=== PATIENT | male | born 1965 | race Caucasian/White ===

== ENCOUNTER 2017-01-27 20:42 | Inpatient (IN) | payer SELFPAY ==
--- NOTE | 2017-01-27 21:09 | ER Document Report ---
ED Neuro Symptoms/Deficit - General Chief Complaint: S/S of Possible Stroke Stated Complaint: POSSIBLE STROKE Time seen by provider: 21:00 Notes: Patient is a 51-year-old male that comes emergency department for chief complaint of left-sided weakness and facial drooping on the left side as well. Patient and significant other states symptoms started yesterday but patient did not want to comes emergency department. Patient states he feels a little off balance as well, has weakness in his left arm and left leg. Patient denies any other symptoms. Symptoms have not resolved since yesterday. Patient has a history of type II diabetes, on metformin, also has a history of kidney stones. Patient denies any other medical history including cardiovascular history. Patient does not have a primary care provider. - Related Data Allergies/Adverse Reactions: No Known Allergies Allergy (Verified 01/27/17 21:58) Past Medical History - General Information source: Patient - Social History Smoking Status: Former Smoker Drug Abuse: None Lives with: Family Family History: Reviewed & Not Pertinent Endocrine Medical History: Reports: Hx Diabetes Mellitus Type 2 Renal/ Medical History: Reports: Hx Kidney Stones Past Surgical History: Reports: Hx Urinary Tract Surgery - Ureteral stent - Immunizations Hx Diphtheria, Pertussis, Tetanus Vaccination: Yes Review of Systems - Review of Systems Constitutional: No symptoms reported EENT: No symptoms reported Cardiovascular: No symptoms reported Respiratory: No symptoms reported Gastrointestinal: No symptoms reported Genitourinary: No symptoms reported Male Genitourinary: No symptoms reported Musculoskeletal: No symptoms reported Skin: No symptoms reported Hematologic/Lymphatic: No symptoms reported Neurological/Psychological: See HPI Physical Exam - Vital signs Interpretation: Normal - General General appearance: Appears well In distress: None - HEENT Head: Normocephalic, Atraumatic Eyes: Normal Conjunctiva: Normal Extraocular movements intact: Yes Eyelashes: Normal Pupils: PERRL Nasal: Normal Mouth/Lips: Normal Mucous membranes: Normal Pharynx: Normal Neck: Normal - Respiratory Respiratory status: No respiratory distress Chest status: Nontender Breath sounds: Normal. No: Decreased air movement, Wheezing Chest palpation: Normal - Cardiovascular Rhythm: Regular. No: Tachycardia Heart sounds: Normal auscultation, S1 appreciated, S2 appreciated Murmur: No - Abdominal Inspection: Normal Distension: No distension Bowel sounds: Normal Tenderness: Nontender. No: Tender, Guarding - Back Back: Normal, Nontender. No: Tender - Extremities General upper extremity: Normal inspection, Nontender. No: Tender General lower extremity: Normal inspection, Nontender. No: Tender - Neurological Neuro grossly intact: Yes Cognition: Normal. No: Confused, Inattentive Orientation: AAOx4. No: Disoriented to person, Disoriented to place, Disoriented to time, Disoriented to events Melody Coma Scale Eye Opening: Spontaneous [place] Coma Scale Verbal: Oriented Melody Coma Scale Motor: Obeys Commands Melody Coma Scale Total: 15 Speech: Normal. No: Dysarthria, Expressive aphasia, Receptive aphasia Cranial nerves: Facial palsy - There is noted facial palsy with left-sided facial droop at the mouth, Forehead sparing - There is noted left sided forehead sparing. No: Gaze palsy, Tongue deviation Motor strength normal: RUE, RLE. No: LUE - Right side normal, left upper extremity with mild reduced crane rigger strength, LLE - Patient able to elevate left leg but loses strength and falls back to bed before 10 seconds has passed, regular with normal strength. Additional motor exam normals: No: Equal crane rigger - Weakened crane rigger on the left side compared to the right Sensory: Normal - Psychological Associated symptoms: Normal affect, Normal mood - Skin Skin Temperature: Warm Skin Moisture: Dry Skin Color: Normal Course - Re-evaluation Re-evalutation: Patient presents with examination and symptoms consistent with CVA, symptoms started yesterday and he is outside the window to consider thrombolytics. Patient with facial palsy including left-sided facial droop and weakness, difficulty blinking with the left eye, and flattening of the left forehead suggestive of Barba's palsy, however on examination patient also has noted weakness in the left hand crane rigger and also weakness in the left leg suggestive of a CVA. CT of the head shows no hemorrhage or other acute abnormality. Patient hypertensive, not medicating because of suspected CVA and will proceed with permissive hypertension, mild hyperglycemia, no atrial fibrillation on EKG, generally unremarkable workup. Patient's symptoms continued on reevaluation. Patient was discussed with Dr. Durham. Patient was discussed with Dr. Harris, patient will be admitted to the [facility]. - Laboratory Result Diagrams: 01/27/17 21:15 01/27/17 21:15 ED Alteplase Inc/Exc Criteria - Inclusion Criteria: 1: Patient presented to ED within 3 hours of acute ischemic stroke symptom onset ? -: No 2: Did baseline CT exclude intracranial hemorrhage and/or other risk factors? 3: Is the age of the patient 18 years of age or greater? : If any of the above questions are answered "NO" then stop, patient is not a candidate for Alteplase, : If all of the above questions are answered "YES" then continue with Exclusion Criteria. - Exclusion Criteria: 1: Is there evidence of intracranial hemorrhage on baseline CT? 2: Is there suspicion of subarachnoid hemorrhage (even if CT negative)? 3: Is there a history of serious head trauma, recent previous stroke or TX within 3 months? 4: Does the patient have a clinical presentation consistent with TX or post-TX pericarditis? 5: Is there history of intracranial hemorrhage? 6: On repeated measurement is Systolic BP greater than 185mmHg or Diastolic BP greater that 110 mmHg and is aggressive treatment needed to reduce blood pressure to these limits (e.g. constant infusion of an anti-hypertensive)? 7: Did the patient awake with stroke symptoms? 8: Has the patient had a lumbar puncture or an arterial puncture at a non- compressile site within 7 days? 9: With in the last 14 days did the patient have surgery or major trauma? 10: Is the patient or less than 2 weeks? 11: Was there any active bleeding or acute trauma? 12: Does the patient have intracranial neoplasm, arteriovenous malformation or aneurysm? 13: Does the patient have abnormal glucose (less than 50 or greater than 400mg/ dl)? Record glucose in Comment. 14: Patient has rapidly improving symptoms at the time Alteplase is to be Administered. 15: Does the patient have any risks for bleeding, including but not limited to: a.: Current use of Coumadin with PT greater than 15 seconds or INR greater than 1.7. b.: Current use of Pradaxa (Dabigatran). c.: Heparin administereed within the past 48 hours and PTT elevated. d.: Platelet count less than 100,000/mm. e.: Major surgery or serious trauma within 14 days. f.: Gastrointestinal or gynecological urinary bleeding within 14 days. g.: Myocardial Infarction (TX) within 3 months. : If the answer to any of the above questions is "YES" then stop, the patient is not a candidate for Alteplase. : If the answer to all of the above questions is "NO" then the patient may be eligible for the Administration of Alteplase. : If the patient is noted to have seizure activity at onset of Stroke symptoms; Consult Neurologist for further evaluation. - The patient is: -: Included and is eligible to receive Alteplase. *Initiate bed placement at higher level of care* Reviewd risks & benefits of thrombolytic therapy: I have reviewed the risks and benefits of thrombolytic therapy with the patient and/or his/her family. -: Excluded and not eligible to receive Alteplase for the above exclusions. -: Excluded and not eligible to receive Alteplase for other reasons (specify in comments): - Diagnosis of TIA: -: Patient presented with transient symptoms that are now resolved and no other neurologic findings are currently present. List symptoms in comments. -: Patient is NOT a candidate for tPA. -: ____(put name in comment) has been consulted for admission and continued evaluation of risk factor assessment. ED NIH Stroke Scale - NIH Stroke Scale When completed:: Before Alteplase *: 1. NIH scale should be completed with appropriate accompanying assessment tools. *: 2. The NIH should reflect what the patient is capable of doing and should not be coached by the clinician. 1a. Level of Consciousness: 0=Alert;keenly responsive -: 1=Drowsy -: 2=Obtunded -: 3=Coma/unresponsive or reflex to noxious stimuli. 1a. Responses: 0 1b. Orientation Questions: a. What month is it? -: b. How old are you? -: 0=Answers both questions correctly. -: 1=Answers one question correctly or patient is intubated or has orotracheal trauma. -: 2=Answers neither question correctly. 1b. Responses: 0 1c. Response to commands: a. Open and close eyes? -: b. Cardroom Attendant and release hand? -: Credit is given despite weakness. Demonstration of task is permitted. Substitute command if hands cannot be used. -: 0=Performs both tasks correctly -: 1=Performs one task correctly -: 2=Performs neither task correctly 1c. Responses: 0 2. Gaze: Establish eye contact and instruct patient to "Follow my finger" -: 0=Normal -: 1=Partial gaze palsy. Gaze is abnormal in one or both eyes, but where forced deviation or total gaze paresis is not present. -: 2=Forced deviation or total gaze paresis. 2. Responses: 0 3. Visual Garcia: Sees fingers in all four quadrants. -: 0=No visual loss. -: 1=Partial hemianopsia. -: 2=Complete hemianopsia. -: 3=Bilateral hemianopsia (including Cortical blindness) 3. Responses: 0 4. Facial Movement: Instruct patient to: -: a. Show me your teeth -: b. Raise your eyebrows -: c. Close your eyes -: d. Smile -: 0=Normal symmetrical movement -: 1=Minor paralysis (flattened nasolabial fold, asymmetry on smiling). -: 2=Partial paralysis (total or near total paralysis of lower face). -: 3=Complete paralysis of upper and lower face 4. Responses: 2 5. Motor functions (left arm): Alternate sides and extend each arm with palms down (90 degrees if sitting or 45 degrees for supine). -: 0=No drift;limb holds for full 10 seconds. -: 1=Drift; limb holds but drifts down before full 10 seconds, but does not hit bed. -: 2=Some effort against gravity; limb cannot get to or maintain position. -: 3=No effort against gravity; limb falls. -: 4=No movement. -: UN=Amputation, joint fusion, explain in comments. 5. Responses (left arm): 1 5. Motor Functions (right arm): Alternate sides and extend each arm with palms down (90 degrees if sitting or 45 degrees for supine). -: 0=No drift;limb holds for full 10 seconds. -: 1=Drift; limb holds but drifts down before full 10 seconds, but does not hit bed. -: 2=Some effort against gravity; limb cannot get to or maintain position. -: 3=No effort against gravity; limb falls. -: 4=No movement. -: UN=Amputation, joint fusion, explain in comments. 5. Responses (right arm): 0 6. Motor Functions (left leg): With patient lying supine, alternate sides and extend each leg (30 degrees always while supine). -: 0=No drift, leg holds position for full 5 seconds -: 1=Drift; leg falls before full 5 seconds but does not hit bed. -: 2=Some effort against gravity, leg falls to bed but some effort against gravity. -: 3=No effort against gravity, leg falls to bed immediately. -: 4=No movement. -: UN=Amputation, joint fusion; explain in comments. 6. Responses (left leg): 1 6. Motor Functions (right leg): With patient lying supine, alternate sides and extend each leg (30 degrees always while supine). -: 0=No drift, leg holds position for full 5 seconds -: 1=Drift; leg falls before full 5 seconds but does not hit bed. -: 2=Some effort against gravity, leg falls to bed but some effort against gravity. -: 3=No effort against gravity, leg falls to bed immediately. -: 4=No movement. -: UN=Amputation, joint fusion; explain in comments. 6. Responses (right leg): 0 7. Limb Ataxia: With eyes open instruct patient to: -: a. "Touch your finger to your nose". -: b. "Touch your heel to your lu" -: 0=Absent -: 1=Present in one limb. -: 2=Present in two limbs. -: UN=Amputation or joint fusion; explain in comments. 7. Responses: 0 8. Sensory: Test sensation using pinprick or noxious stimuli. Test as many body parts as possible. -: 0=Normal;no sensory loss -: 1=Mile to moderate sensory loss (patient feels pin prick but is less sharp on affected side). -: 2=Severe or total sensory loss. 8. Responses: 0 9. Best Language: Instruct patient to: -: a. "Describe what you see in this picture." -: b. "Name the items in this picture." -: c. "Read these sentences." -: 0=No aphasia, normal -: 1=Mild to moderate aphasia. -: 2=Severe aphasia -: 3=Mute, global aphasia, no usable speech or auditory comprehension. 9. Responses: 0 10. Articulation, Dysarthia: Instruct patient to: -: "Read these words" or "Repeat these words" -: 0=Normal -: 1=Mild to moderate; patient may slur some words but can be understood without difficulty. -: 2=Severe; patients speech so slurred as to be unintelligible in the absence of dysphasia. -: UN=Intubated or other physical barrier, explain in comments. 10. Responses: 0 11. Extinction or inattention: 0=No abnormality -: 1= Visual, tactile, auditory, spatial, or personal inattention or extinction to bilateral simulation in one or the sensory modalities. -: 2=Profound kassidy-inattention or kassidy-inattention to more than one modality; does not recognize own hand. 11. Responses: 0 Total Score: 4 Discharge - Discharge Clinical Impression: Left-sided weakness, Facial palsy CVA (cerebral vascular accident) Qualifiers: CVA mechanism: unspecified Qualified Code(s): I63.9 - Cerebral infarction, unspecified Condition: Stable Disposition: ADMITTED INPATIENT Admitting Provider: Hospitalist Unit Admitted: [facility]
[2017-01-27 21:42] LABS: ABSOLUTE BASOPHILS # (AUTO) 0.1 10^3/uL (0.0-0.2); ABSOLUTE EOSINOPHILS # (AUTO) 0.1 10^3/uL (0.0-0.6); ABSOLUTE LYMPHOCYTES (AUTO) 2.2 10^3/uL (0.5-4.7); ABSOLUTE MONOCYTES (AUTO) 0.6 10^3/uL (0.1-1.4); BASOPHILS % (AUTO) 0.6 % (0-2); EOSINOPHILS % (AUTO) 0.7 % (0-6); HEMATOCRIT 47.2 % (37.9-51.0); HEMOGLOBIN 16.3 g/dL (13.5-17.0); HGB HCT DIFFERENCE 1.7; LYMPHOCYTES % (AUTO) 20.2 % (13-45); MEAN CORPUSCULAR HGB CONC 34.5 g/dL (32.0-36.0); MEAN CORPUSCULAR VOLUME 84 fl (80-97); MONOCYTES % (AUTO) 5.2 % (3-13); RED CELL DISTRIBUTION WIDTH 13.9 % (11.5-14.0); SEGMENTED NEUTROPHILS % (AUTO) 73.3 % (42-78); WHITE BLOOD COUNT 10.9 10^3/uL (4.0-10.5)
[2017-01-27 21:43] LABS: PROTHROMBIN TIME 13.3 SEC (11.4-15.4)
[2017-01-27 21:44] LABS: PARTIAL THROMBOPLASTIN TIME 26.2 SEC (23.5-35.8)
[2017-01-27 21:59] LABS: ALANINE AMINOTRANSFERASE 33 U/L (21-72); ALBUMIN 4.8 g/dL (3.5-5.0); ALKALINE PHOSPHATASE 101 U/L (38-126); ANION GAP 14 (5-19); ASPARTATE AMINO TRANSFERASE 27 U/L (17-59); BILIRUBIN,DIRECT 0.1 mg/dL (0.0-0.4); BILIRUBIN,TOTAL 0.8 mg/dL (0.2-1.3); BLOOD UREA NITROGEN 18 mg/dL (7-20); CALCIUM 9.7 mg/dL (8.4-10.2); CARBON DIOXIDE 28 mmol/L (22-30); CHLORIDE 99 mmol/L (98-107); CREATINE KINASE 59 U/L (55-170); CREATININE RESULT 0.95 mg/dL (0.52-1.25); GLUCOSE 266 mg/dL (75-110); POTASSIUM 3.6 mmol/L (3.6-5.0); SODIUM 140.9 mmol/L (137-145); TOTAL PROTEIN 7.7 g/dL (6.3-8.2)
[2017-01-27 22:06] LABS: CREATINE KINASE MB 0.35 ng/mL (<4.55)
[2017-01-27 22:08] LABS: TROPONIN I < 0.012 ng/mL
[2017-01-28] MEDS ORDERED: ACETAMINOPHEN 325 MG TABLET PO ONE (01:04)
[2017-01-28] MEDS ORDERED: GLUCAGON,HUMAN RECOMB 1 MG INJ IM PRN (04:06)
[2017-01-28] MEDS ORDERED: DEXTROSE 40% GEL 15 GM TUBE PO PRN ×2 (04:06)
[2017-01-28] MEDS ORDERED: DEXTROSE 50%-WATER 25 GM/50 ML DISP.SYRIN IV PRN ×2 (04:06)
--- NOTE | 2017-01-28 04:35 | PDOC H&P ---
History of Present Illness Admission Date/PCP: 01/28/17 02:26 PCP None Patient complains of: stroke like symptoms History of Present Illness: MARLON GONZALEZ is a 51 year old obese [id number] diabetic hypertensive male who presents to the emergency room for evaluation of above complaints. Patient has been discussed with emergency room nurse practitioner who evaluated the patient. Starting approximate 24 hours prior to emergency room presentation, patient noted the onset of left-sided weakness, along with facial drooping and mild dysarthria. Some mild left facial numbness and tingling also. Really no change in his symptoms since the start of same. No dysphagia. No vision problems. No prior such episodes. No history of seizure stroke TIA or mini stroke. Mild associated headache on occasion, but no chest or abdominal pain. Mild nausea but no vomiting. No fever or chills.. Laboratory results are listed in [email or web address] and are reviewed. X-ray summary results are listed below, with full report(s) reviewed. . EKG pending Social history/personal habits: . Has stepchildren. Drives a cab. No use of alcohol tobacco or illicit drugs. Allergies/adverse reactions NKDA. Home medications none at present. Was on metformin in the past. REVIEW OF SYSTEMS: Constitutional: No fever or chills. Eyes: No current vision complaints. ENT: No swallowing problems or complaints. No hearing problems or complaints. Pulmonary: No current complaints. Cardiovascular: No current complaints, including chest pain. Gastrointestinal: See history and present illness. Skin: No current complaints, including rashes. Hematologic: No unusual easy bruising or bleeding. Neurologic: See history and present illness. Musculoskeletal: Joint pain from arthritis. Psychiatric: No current complaints, including anxiety or depression. Endocrine: No current complaints, including polyuria. Genitourinary: No current complaints, including dysuria. PHYSICAL EXAMINATION: 5 feet 7 inches tall. 101.7 kg. BMI 35.1 kg/m. The pressure 161/94. Pulse 78 and regular. 99% saturation on room air. Respirations are 12 and unlabored. Temperature 98.1. Obese otherwise well-developed male appearing approximately his stated age. Pleasant awake alert and cooperative. No obvious distress other than perhaps mildly anxious. No agitation. Skin is warm and dry. No grossly obvious evidence of rash in areas of skin examined. No subcutaneous nodules palpated. ENT: Hearing grossly normal to normal conversation. Tongue midline on protrusion pink and slightly tacky. Eyes: No scleral icterus. Pupils equal and reactive to light at 4 mm. Huxley conjunctivae. Neck is supple and nontender to gentle active range of motion and palpation. Midline trachea. No palpable thyroid nodule mass enlargement or tenderness. Lymphatic: No palpable cervical or clavicular nodes. Neck and lymphatic exams limited by patient body habitus. Psychiatric: Reasonable insight into acute and chronic medical issues. Oriented to time location and why here. Lungs: Auscultation reveals clear and equal breath sounds bilaterally. No use of accessory respiratory muscles. Cardiovascular: Heart regular rate and rhythm, without gallop murmur or rub. No carotid or abdominal aortic bruits. No ankle or pedal edema. Faintly palpable dorsalis pedis pulses. Abdomen: soft, obese, nontender with positive bowel sounds. Unable to adequately evaluate abdomen for masses or organomegaly due to body habitus. Extremities: Feet are warm and dry. No calf tenderness to compression. No grossly obvious visual evidence of calf swelling. Gentle manipulation of upper and lower extremities fails to reveal any obvious evidence of injury or instability to involve major joints. Neurologic: Cranial Nerves II through XII are grossly intact, with the exception of drooping of the left corner of the mouth, more pronounced with smiling.. Light touch intact at face, upper and lower extremities. Motor function of major muscle groups upper and lower extremities 5 over 5, right, 4 over 5, left . Patellar reflexes absent. Absent Babinski. No nystagmus. Past Medical History Cardiac Medical History: Reports: Hypertension Denies: Congestive Heart Failure, DVT, Myocardial Infarction, Hyperlipidema, Pulmonary Embolism Pulmonary Medical History: Reports: Asthma - History of; hasn't bothered him in many years. Denies: Chronic Obstructive Pulmonary Disease (COPD) Neurological Medical History: Denies: Hemorrhagic CVA, Ischemic CVA, Seizures Endocrine Medical History: Reports: Diabetes Mellitus Type 2 Denies: Diabetes Mellitus Type 1, Hyperthyroidism, Hypothyroidism Renal/ Medical History: Reports: None GI Medical History: Denies: Cirrhosis, Gastroesophageal Reflux Disease, Hepatitis, Peptic Ulcer Disease Musculoskeltal Medical History: Reports: Arthritis Skin Medical History: Reports: None Psychiatric Medical History: Reports: Depression - Denies suicidal or homicidal ideation. Denies: Alcohol Dependency, General Anxiety Disorder, Substance Abuse, Tobacco Dependency Hematology: Reports: None Infectious Medical History: Denies: Hepatitis B, Hepatitis C Past Surgical History Past Surgical History: Reports: Orthopedic Surgery - Left knee surgery, Tonsillectomy Social History Information Source: Patient, Emergency Med Personnel, [facility] Records Lives with: Spouse/Significant other Smoking Status: Never Smoker Frequency of Alcohol Use: None Drugs: None - Advance Directive Resuscitation Status: Full Code Surrogate healthcare decision maker:: Family History Family History: Reviewed & Not Pertinent Parental Family History Reviewed: Yes Children Family History Reviewed: NA Sibling(s) Family History Reviewed.: Yes Medication/Allergy Allergies/Adverse Reactions: No Known Allergies Allergy (Verified 01/27/17 21:58) Physical Exam Vital Signs: Temp Pulse Resp BP Pulse Ox 98.1 F 71 15 167/97 H 98 01/28/17 01:00 01/28/17 03:02 01/28/17 03:32 01/28/17 03:32 01/28/17 03:32 Results Impressions: Chest X-Ray 01/27/17 20:45 IMPRESSION: NO ACUTE RADIOGRAPHIC FINDING IN THE CHEST. Head CT 01/27/17 20:45 IMPRESSION: No acute findings. Assessment & Plan - Diagnosis (1) Acute focal neurological deficit Is this a current diagnosis for this admission?: YesPlan: Patient will be admitted under CVA/TIA protocol. Multiple imaging procedures, intracranial, vascular, and cardiac. lipid panel. Permissive hypertension. Speech therapy consult. Patient is a full code. I have strongly urged patient not to get out of bed without calling nursing staff, to avoid a fall with injury.] Knee high SCDs for DVT prophylaxis, along with subcutaneous Lovenox . Impression and plans were discussed with patient, who concurs. Time spent in evaluation and management of patient: 62 minutes (2) Facial droop Is this a current diagnosis for this admission?: Yes (3) Left-sided weakness Is this a current diagnosis for this admission?: Yes (4) Diabetes mellitus type 2 in obese Is this a current diagnosis for this admission?: YesPlan: Accu-Cheks with appropriate sliding scale coverage. (5) HTN (hypertension) Qualifiers: Hypertension type: essential hypertension Qualified Code(s): I10 - Essential (primary) hypertension Is this a current diagnosis for this admission?: YesPlan: Permissive hypertension. (6) Noncompliance Is this a current diagnosis for this admission?: Yes - Inpatient Certification Based on my medical assessment, after consideration of the patient's comorbidities, presenting symptoms, or acuity I expect that the services needed warrant INPATIENT care.: Yes I certify that my determination is in accordance with my understanding of Medicare's requirements for reasonable and necessary INPATIENT services [42 CFR 412.3e].: Yes Medical Necessity: Need For IV Fluids, Need For Continuous Telemetry Monitoring , Need for Neurological Checks, Risk of Complication if Not Cared For in Hospital Post Hospital Care: D/C or Transfer Summary
[2017-01-28] MEDS: POTASSI CL 20 MEQ/NS 1L 1,000 ML IV PRN ×2 (05:08→14:11)
[2017-01-28] MEDS: ASPIRIN 325 MG TABLET, ENT COATED PO SCH (05:10)
[2017-01-28 05:50] LABS: ADD ON TESTING BLD IN LAB ACKNOWLEDGE
[2017-01-28 06:08] LABS: CHOLESTEROL 212.75 mg/dL (0-200); Direct HDL 37 mg/dL (>40); TRIGLYCERIDES 342 mg/dL (<150)
[2017-01-28 06:20] LABS: DIRECT LDL 99 mg/dL (<100)
[2017-01-28 06:21] LABS: VLDL CHOLESTEROL 68.4 mg/dL (10-31)
--- NOTE | 2017-01-28 08:17 | EKG REPORT ---
SEVERITY:- ABNORMAL ECG - SINUS RHYTHM ATRIAL PREMATURE COMPLEX LVH WITH SECONDARY REPOLARIZATION ABNORMALITY ANTERIOR Q WAVES, POSSIBLY DUE TO LVH : Confirmed by: Jacky Cary MD 28-Jan-2017 08:16:57
[2017-01-28 10:44] LABS: URINE BARBITURATES SCREEN NEGATIVE; URINE METHADONE SCREEN NEGATIVE; URINE OPIATES LOW NEGATIVE; URINE PHENCYCLIDINE SCREEN NEGATIVE
[2017-01-28] MEDS: INSULIN LISPRO 100 UNIT/ML 3 ML VIAL SUBCUT PRN ×2 (11:40→16:29)
[2017-01-28] MEDS: LORAZEPAM INJ 2 MG/1 ML VIAL IV PRN (11:50)
[2017-01-28] MEDS ORDERED: LORAZEPAM INJ 2 MG/1 ML VIAL IV ONE (12:00)
[2017-01-28] MEDS: ENOXAPARIN SODIUM INJ 40 MG/0.4 ML DISP.SYRIN SUBCUT SCH (14:13)
[2017-01-28] MEDS: DOCUSATE SODIUM 100 MG CAPSULE PO SCH ×2 (14:26→16:32)
[2017-01-28] MEDS: ACETAMINOPHEN 325 MG TABLET PO PRN ×2 (16:31→22:17)
[2017-01-29] MEDS: INSULIN LISPRO 100 UNIT/ML 3 ML VIAL SUBCUT PRN ×2 (09:05→12:30)
[2017-01-29] MEDS: ENOXAPARIN SODIUM INJ 40 MG/0.4 ML DISP.SYRIN SUBCUT SCH (09:06)
[2017-01-29] MEDS: DOCUSATE SODIUM 100 MG CAPSULE PO SCH (09:08)
[2017-01-29] MEDS: ASPIRIN 325 MG TABLET, ENT COATED PO SCH (09:09)
[2017-01-29] MEDS: ACETAMINOPHEN 325 MG TABLET PO PRN ×2 (09:10→13:09)
[2017-01-29] MEDS: POTASSI CL 20 MEQ/NS 1L 1,000 ML IV PRN (10:33)
[2017-01-29] MEDS: LORAZEPAM INJ 2 MG/1 ML VIAL IV PRN (13:56)
--- NOTE | 2017-01-29 14:07 | XCELERA REPORT ---
[address] [address] Transthoracic Echocardiogram Report Name: MARLON GONZALEZ Age: 51 yrs Gender: Male : 1965 Patient Status: Inpatient Patient Location: \S\04\S\A Study Date: 01/28/2017 09:21 AM Height: 67 in Weight: 224 lb BSA: 2.1 m2 Procedure: A two-dimensional transthoracic echocardiogram with color flow and Doppler was performed. Study Quality: Technically suboptimal. Reason For Study: TIA / CVA History: TIA / CVA. Ordering Physician: BOZENA LOPEZ Performed By: Lisa Asencio Interpretation Summary There is no obvious cardiac source of embolus noted on this transthoracic echocardiogram. Follow-up with a MARIS is suggested if cardiac source is still suspected. The left ventricle is normal in size. There is mild concentric left ventricular hypertrophy. LV EF is > than 60% Left ventricular systolic function is normal. Doppler measurements suggest normal left ventricular diastolic function The left ventricular wall motion is normal. There is no thrombus. There is no ventricular septal defect visualized. The left atrial size is normal. There is no evidence of mitral valve prolapse. There is no mitral valve stenosis. There is no mitral regurgitation noted. There is no aortic valvular vegetation. There is no aortic valve stenosis There is no LVOT obstruction. No aortic regurgitation is present. There is no tricuspid stenosis. No tricuspid regurgitation. Unable to calculate RVSP due to insufficient TR jet. There is no pericardial effusion. There is no obvious cardiac source of embolus noted on this transthoracic echocardiogram. Follow-up with a MARIS is suggested if cardiac source is still suspected MMode/2D Measurements \T\ Calculations RVDd: 2.9 cm LVIDd: 4.5 cm FS: 29.4 % Ao root diam: 3.5 cm IVSd: 1.2 cm LVIDs: 3.2 cm EDV(Teich): 94.9 ml LVPWd: 1.2 cm ESV(Teich): 41.4 ml Ao root area: 9.4 cm2 EF(Teich): 56.4 % LA dimension: 3.5 cm LVOT diam: 2.3 cm LVOT area: 4.0 cm2 Doppler Measurements \T\ Calculations MV E max helen: MV P1/2t max helne: Ao V2 max: LV V1 max P.0 cm/sec 67.1 cm/sec 105.9 cm/sec 3.0 mmHg MV A max helen: MV P1/2t: 38.4 msec Ao max PG: LV V1 max: 56.3 cm/sec MVA(P1/2t): 5.7 cm2 4.5 mmHg 87.1 cm/sec MV E/A: 1.2 MV dec slope: YARELI(V,D): 3.3 cm2 511.8 cm/sec2 PA V2 max: 79.7 cm/sec PA max P.5 mmHg Left Ventricle The left ventricle is normal in size. There is mild concentric left ventricular hypertrophy. LV EF is > than 60%. Left ventricular systolic function is normal. Doppler measurements suggest normal left ventricular diastolic function. The left ventricular wall motion is normal. There is no thrombus. There is no ventricular septal defect visualized. Right Ventricle The right ventricle is normal in size and function. Atria The right atrium is normal. The left atrial size is normal. The interatrial septum is intact with no evidence for an atrial septal defect. Mitral Valve There is no evidence of mitral valve prolapse. There is no vegetation seen on the mitral valve. There is no mitral valve stenosis. There is no mitral regurgitation noted. Aortic Valve There is no aortic valvular vegetation. There is no aortic valve stenosis. There is no LVOT obstruction. No aortic regurgitation is present. Tricuspid Valve There is no tricuspid stenosis. No tricuspid regurgitation. Unable to calculate RVSP due to insufficient TR jet. Pulmonic Valve There is no pulmonic valvular stenosis. There is no pulmonic valvular regurgitation. Great Vessels The aortic root is normal size. Effusions There is no pericardial effusion. : BOZENA LOPEZ > Roya Martinez
[2017-01-29 17:18] VITALS: BP 174/90
[2017-01-30 07:33] LABS: LYME DISEASE IGG AND IGM AB <0.91 ISR (0.00-0.90)
--- NOTE | 2017-01-30 17:05 | PDOC DISCHARGE SUMMARY ---
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?: Yes (2) Diabetes mellitus type 2 in obese Is this a current diagnosis for this admission?: Yes (3) HTN (hypertension) Is this a current diagnosis for this admission?: Yes (4) Noncompliance Is this a current diagnosis for this admission?: Yes - Additional Information Resuscitation Status: Full Code Discharge Diet: Regular Discharge Activity: Activity As Tolerated Home Medications: Aspirin [Aspirin 81 mg Chewable Tablet] 81 mg PO DAILY #1 pkg 01/29/17 Metformin HCl 500 mg PO BID #60 tablet 01/29/17 Prednisone 60 mg PO DAILY #21 tablet 01/29/17 History of Present Illness Patient complains of: Left-sided facial droop History of Present Illness: MARLON GONZALEZ is a 51 year old obese hom-jgxeezi-vbsixhvvc diabetic hypertensive male who presents to the emergency room for evaluation of above complaints. Starting approximate 24 hours prior to emergency room presentation, patient noted the onset of left-sided weakness, along with facial drooping and mild dysarthria. Some mild left facial numbness and tingling also. Really no change in his symptoms since the start of same. No dysphagia. No vision problems. No prior such episodes. No history of seizure stroke TIA or mini stroke. Mild associated headache on occasion, but no chest or abdominal pain. Mild nausea but no vomiting. No fever or chills. Hospital Course Hospital Course: The patient was observed continuous telemetry unit. The patient had no episodes while on the ekg monitor tech. The patient's facial droop was persistent.. The patient underwent head CT and MRI of the brain which did not reveal any acute findings. However repeat MRI with contrast did reveal inflammation of the seventh cranial nerve which was consistent with Barba's palsy. Discussed the case with radiology. The patient had a carotid Doppler with no significant stenosis. Echocardiogram did not reveal an embolic source. The patient was seen and evaluated by therapies, recommendations have been made and the patient is ready for discharge. Physical Exam Vital Signs: Temp Pulse Resp BP Pulse Ox 97.9 F 72 16 174/90 H 97 01/29/17 17:15 01/29/17 17:15 01/29/17 17:15 01/29/17 17:15 01/29/17 17:15 Intake & Output 01/28/17 01/29/17 01/30/17 23:59 23:59 23:59 Intake Total 900 2075 Balance 900 2075 Weight 107.3 kg 108.9 kg General appearance: PRESENT: no acute distress, cooperative, well-developed, well-nourished Head exam: PRESENT: atraumatic, normocephalic Eye exam: PRESENT: conjunctiva pink, EOMI, PERRLA. ABSENT: scleral icterus Ear exam: PRESENT: normal external ear exam Mouth exam: PRESENT: moist, tongue midline Neck exam: ABSENT: carotid bruit, JVD, lymphadenopathy, thyromegaly Respiratory exam: PRESENT: clear to auscultation elizabeth. ABSENT: rales, rhonchi, wheezes Cardiovascular exam: PRESENT: RRR. ABSENT: diastolic murmur, rubs, systolic murmur Pulses: PRESENT: normal dorsalis pedis pul Vascular exam: PRESENT: normal capillary refill GI/Abdominal exam: PRESENT: normal bowel sounds, soft. ABSENT: distended, guarding, mass, organolmegaly, rebound, tenderness Rectal exam: PRESENT: deferred Extremities exam: PRESENT: full ROM. ABSENT: calf tenderness, clubbing, pedal edema Neurological exam: PRESENT: alert, awake, oriented to person, oriented to place , oriented to time, oriented to situation, CN II-XII grossly intact. ABSENT: motor sensory deficit Psychiatric exam: PRESENT: appropriate affect, normal mood. ABSENT: homicidal ideation, suicidal ideation Skin exam: PRESENT: dry, intact, warm. ABSENT: cyanosis, rash Results Laboratory Results: Labs- Last Values WBC 10.9 10^3/uL (4.0-10.5) H 01/27/17 21:15 RBC 5.60 10^6/uL (4.35-5.55) H 01/27/17 21:15 Hgb 16.3 g/dL (13.5-17.0) 01/27/17 21:15 Hct 47.2 % (37.9-51.0) 01/27/17 21:15 MCV 84 fl (80-97) 01/27/17 21:15 MCH 29.0 pg (27.0-33.4) 01/27/17 21:15 MCHC 34.5 g/dL (32.0-36.0) 01/27/17 21:15 RDW 13.9 % (11.5-14.0) 01/27/17 21:15 Plt Count 239 10^3/uL (150-450) 01/27/17 21:15 Seg Neutrophils % 73.3 % (42-78) 01/27/17 21:15 Lymphocytes % 20.2 % (13-45) 01/27/17 21:15 Monocytes % 5.2 % (3-13) 01/27/17 21:15 Eosinophils % 0.7 % (0-6) 01/27/17 21:15 Basophils % 0.6 % (0-2) 01/27/17 21:15 Absolute Neutrophils 8.0 10^3/uL (1.7-8.2) 01/27/17 21:15 Absolute Lymphocytes 2.2 10^3/uL (0.5-4.7) 01/27/17 21:15 Absolute Monocytes 0.6 10^3/uL (0.1-1.4) 01/27/17 21:15 Absolute Eosinophils 0.1 10^3/uL (0.0-0.6) 01/27/17 21:15 Absolute Basophils 0.1 10^3/uL (0.0-0.2) 01/27/17 21:15 PT 13.3 SEC (11.4-15.4) 01/27/17 21:15 INR 0.98 01/27/17 21:15 APTT 26.2 SEC (23.5-35.8) 01/27/17 21:15 Sodium 140.9 mmol/L (137-145) 01/27/17 21:15 Potassium 3.6 mmol/L (3.6-5.0) 01/27/17 21:15 Chloride 99 mmol/L (98-107) 01/27/17 21:15 Carbon Dioxide 28 mmol/L (22-30) 01/27/17 21:15 Anion Gap 14 (5-19) 01/27/17 21:15 BUN 18 mg/dL (7-20) 01/27/17 21:15 Creatinine 0.95 mg/dL (0.52-1.25) 01/27/17 21:15 Est GFR ( Amer) > 60 (>60) 01/27/17 21:15 Est GFR (Non-Af Amer) > 60 (>60) 01/27/17 21:15 Glucose 266 mg/dL (75-110) H 01/27/17 21:15 POC Glucose 201 mg/dL (70-110) H 01/29/17 15:57 Hemoglobin A1c % 8.3 % (4.7-6.0) H 01/27/17 21:15 Calcium 9.7 mg/dL (8.4-10.2) 01/27/17 21:15 Magnesium 2.0 mg/dL (1.6-2.3) 01/27/17 21:15 Total Bilirubin 0.8 mg/dL (0.2-1.3) 01/27/17 21:15 Direct Bilirubin 0.1 mg/dL (0.0-0.4) 01/27/17 21:15 Indirect Bilirubin Not Reportable 01/27/17 21:15 Neonat Total Bilirubin Not Reportable 01/27/17 21:15 AST 27 U/L (17-59) 01/27/17 21:15 ALT 33 U/L (21-72) 01/27/17 21:15 Alkaline Phosphatase 101 U/L (38-126) 01/27/17 21:15 Creatine Kinase 59 U/L (55-170) 01/27/17 21:15 CK-MB (CK-2) 0.35 ng/mL (<4.55) 01/27/17 21:15 Troponin I < 0.012 ng/mL 01/27/17 21:15 Total Protein 7.7 g/dL (6.3-8.2) 01/27/17 21:15 Albumin 4.8 g/dL (3.5-5.0) 01/27/17 21:15 Triglycerides 342 mg/dL (<150) H 01/27/17 21:15 Cholesterol 212.75 mg/dL (0-200) H 01/27/17 21:15 LDL Cholesterol Direct 99 mg/dL (<100) 01/27/17 21:15 VLDL Cholesterol 68.4 mg/dL (10-31) H 01/27/17 21:15 HDL Cholesterol 37 mg/dL (>40) L 01/27/17 21:15 TSH 1.06 uIU/mL (0.47-4.68) 01/27/17 21:15 Urine Opiates Screen NEGATIVE 01/28/17 10:05 Urine Methadone Screen NEGATIVE 01/28/17 10:05 Ur Barbiturates Screen NEGATIVE 01/28/17 10:05 Ur Phencyclidine Scrn NEGATIVE 01/28/17 10:05 Ur Amphetamines Screen NEGATIVE 01/28/17 10:05 U Benzodiazepines Scrn NEGATIVE 01/28/17 10:05 Urine Cocaine Screen NEGATIVE 01/28/17 10:05 U Marijuana (THC) Screen NEGATIVE 01/28/17 10:05 Lyme Screen IgG & IgM <0.91 ISR (0.00-0.90) 01/28/17 11:21 Lyme IgG 18 kDa Band Not Reportable 01/28/17 11:21 Lyme IgG 23 kDa Band Not Reportable 01/28/17 11:21 Lyme IgG 28 kDa Band Not Reportable 01/28/17 11:21 Lyme IgG 30 kDa Band Not Reportable 01/28/17 11:21 Lyme IgG 39 kDa Band Not Reportable 01/28/17 11:21 Lyme IgG 41 kDa Band Not Reportable 01/28/17 11:21 Lyme IgG 45 kDa Band Not Reportable 01/28/17 11:21 Lyme IgG 58 kDa Band Not Reportable 01/28/17 11:21 Lyme IgG 66 kDa Band Not Reportable 01/28/17 11:21 Lyme IgG 93 kDa Band Not Reportable 01/28/17 11:21 Lyme IgG W Blot Interp Not Reportable 01/28/17 11:21 Lyme IgM Quantitation <0.80 index (0.00-0.79) 01/28/17 11:21 Lyme IgM 23 kDa Band Not Reportable 01/28/17 11:21 Lyme IgM 39 kDa Band Not Reportable 01/28/17 11:21 Lyme IgM 41 kDa Band Not Reportable 01/28/17 11:21 Lyme IgM W Blot Interp Not Reportable 01/28/17 11:21 Impressions: Chest X-Ray 01/27/17 20:45 IMPRESSION: NO ACUTE RADIOGRAPHIC FINDING IN THE CHEST. Head CT 01/27/17 20:45 IMPRESSION: No acute findings. Brain MRI with MRA 01/28/17 00:00 IMPRESSION: NORMAL MRI OF THE BRAIN WITHOUT INTRAVENOUS GADOLINIUM CONTRAST. Unremarkable MRA exam [place]. Carotid Doppler Study 01/28/17 04:14 IMPRESSION: NO HEMODYNAMICALLY SIGNIFICANT STENOSIS. Head MRI 01/29/17 00:00 IMPRESSION: Enhancement of the left 7th nerve likely from Barba's palsy. Qualifiers PATEINT BEING DISCHARGED WITH ANY OF THE FOLLOWING DIAGNOSIS?: No Plan Time Spent: Greater than 30 Minutes
== END 2017-01-29 17:34 | disposition home or self-care (01) | DRG 74 ==
LOC: ER 20:42 → UNDOADMIN 01-28 02:26 → EH 01-28 02:26 → 3W 01-28 13:23
PROVIDERS: ADMIT Family Medicine; ATTEND Family Medicine
DX: G51.0 Bell's palsy (principal); E11.9 Type 2 diabetes mellitus without complications; I10 Essential (primary) hypertension; R29.818 Other symptoms and signs involving the nervous system; Z91.19 Patient's noncompliance with other medical treatment and regimen; Z79.84 Long term (current) use of oral hypoglycemic drugs; Z87.891 Personal history of nicotine dependence
CPT/HCPCS: 36415; 70450; 70544; 70551; 70553; 71010; 80053; 80061; 80307; 82550; 82553; 82962; 83036; 83735; 84443; 84484; 85025; 85610; 85730; 86617; 86618; 93005; 93010; 93306; 93880; 99285; A9577; J1650; J1815; J2060; J3480; J3490